=== PATIENT | male | born 1990 ===

== ENCOUNTER 2016-09-26 01:36 | Emergency (ER) | payer SELFPAY ==
[2016-09-26 02:01] VITALS: RESP 20; O2SAT 96
--- NOTE | 2016-09-26 04:34 | C.PDOC ---
History Of Present Illness Patient was brought in by EMS for acute ETOH intoxication. Patient denies any physical complaints at this time. Time Seen by Provider: 09/26/16 02:14 Chief Complaint (Nursing): Substance Abuse History Per: Patient History/Exam Limitations: no limitations Onset/Duration Of Symptoms: Hrs Current Symptoms Are (Timing): Still Present Suicide/Self Injury Attempted (Context): None Modifying Factor(s): Alcohol Associated Symptoms: denies: Depression, Suicidal Thoughts, Suicidal Plan Involuntary Hold By: None Recent travel outside of the [place]: No Past Medical History Reviewed: Historical Data, Nursing Documentation, Vital Signs Vital Signs: Last Vital Signs Temp 98.6 F 09/26/16 01:58 Pulse 90 09/26/16 01:58 Resp 20 09/26/16 01:58 BP 124/79 09/26/16 01:58 Pulse Ox 96 09/26/16 05:07 - Medical History PMH: No Chronic Diseases Surgical History: No Surg Hx Family History: States: Unknown Family Hx - Social History Hx Alcohol Use: Yes Hx Substance Use: No - Immunization History Hx Tetanus Toxoid Vaccination: No Hx Influenza Vaccination: No Hx Pneumococcal Vaccination: No Review Of Systems Constitutional: Negative for: Fever, Chills Gastrointestinal: Negative for: Nausea, Vomiting, Diarrhea Neurological: Positive for: Other (ETOH intoxication) Physical Exam - Physical Exam Appears: Well, Non-toxic, Other (ETOH on breath) Skin: Normal Color, Warm, Dry Head: Atraumatic, Normacephalic Oral Mucosa: Moist Chest: Symmetrical, No Tenderness Cardiovascular: Rhythm Regular, No Murmur Respiratory: Normal Breath Sounds, No Rales, No Rhonchi, No Wheezing Gastrointestinal/Abdominal: Soft, No Tenderness Neurological/Psych: Oriented x3, Normal Speech, Normal Cognition ED Course And Treatment O2 Sat by Pulse Oximetry: 96 (Room air) Pulse Ox Interpretation: Normal Progress Note: On re-evaluation patient is alert and oriented, steady gait, normal speech. Patient is being d/c home in stable condition. Disposition - Disposition Disposition: HOME/ ROUTINE Disposition Time: 04:33 Condition: IMPROVED Instructions: Alcohol Intoxication (ED) - Clinical Impression Clinical Impression: Alcohol intoxication - Scribe Statement The provider has reviewed the documentation as recorded by the Scribe Nando Patel All medical record entries made by the Scribe were at my direction and personally dictated by me. I have reviewed the chart and agree that the record accurately reflects my personal performance of the history, physical exam, medical decision making, and the department course for this patient. I have also personally directed, reviewed, and agree with the discharge instructions and disposition.
[2016-09-26 05:30] VITALS: BP 118/72; PULSE 88; TEMP 98.3
== END 2016-09-26 04:45 | disposition home or self-care (01) ==
LOC: C.ER 01:36
DX: F10.129 Alcohol abuse with intoxication, unspecified (principal); Y90.9 Presence of alcohol in blood, level not specified